=== PATIENT | female | born 1975 | race Asian ===

== ENCOUNTER 2018-04-17 22:49 | Emergency (ER) | payer OTHER ==
[2018-04-17] MEDS ORDERED: PENICILLIN VK 250 MG TABLET PO STA (22:51)
--- NOTE | 2018-04-17 22:54 | ED Physician Documentation ---
History of Present Illness - Stated complaint Stated Complaint: STREP - History obtained from History obtained from: Patient - History of Present Illness Timing: Other (Her son has strep throat and impetigo and she has had a sore throat for 2 days without fever. No cough or other URI symptoms. No possibility of .) Review of Systems Constitutional: denies: Fever, Chills Nose: denies: Rhinorrhea / runny nose Throat: reports: Sore throat Cardiac: denies: Chest pain / pressure, Palpitations PD PAST MEDICAL HISTORY - Past Surgical History Past Surgical History: Yes General: Appendectomy - Present Medications Home Medications: Ambulatory Orders Medication Instructions Recorded Confirmed Amoxicillin/Potassium Clav 1 each PO BID #14 tablet 02/13/16 [Augmentin 875-125 Tablet] Penicillin V Potassium 500 mg PO Q6HR #40 tablet 04/17/18 - Allergies Allergies/Adverse Reactions: Allergies Allergy/AdvReac Type Severity Reaction Status Date / Time No Known Drug Allergies Allergy Verified 02/12/16 23:05 - Social History Does the pt smoke?: No Smoking Status: Never smoker Does the pt drink ETOH?: No Does the pt have substance abuse?: No - Immunizations Immunizations are current?: Yes - POLST Patient has POLST: No PD ED PE NORMAL - Vitals Vital signs reviewed: Yes - General General: Alert and oriented X 3, No acute distress - HEENT HEENT: Other (Red swollen tonsils with modest anterior cervical adenopathy. Supple neck.) - Neuro Neuro: Alert and oriented X 3, Normal speech - Psych Psych: Normal mood, Normal affect Results - Vitals Vitals: Oxygen O2 Source Room air PD MEDICAL DECISION MAKING - ED course ED course: Strep testing not done as she has had a clear exposure to strep throat. Departure - Departure Disposition: Home, Self Care Clinical Impression: Strep pharyngitis Condition: Good Instructions: ED Strep Pharyngitis Poss Prescriptions: Penicillin V Potassium 500 mg PO Q6HR #40 tablet Comments: Follow-up with your physician Monday or Monday if not better. Return for new or worsening symptoms. You can take ibuprofen as needed for pain.
[2018-04-17 23:08] VITALS: BP 98/60
== END 2018-04-17 23:06 | disposition home or self-care (01) ==
LOC: ED 22:49
DX: J02.0 Streptococcal pharyngitis (principal)
CPT/HCPCS: 99283; A9270